=== PATIENT | female | born 1975 | race Caucasian/White ===

== ENCOUNTER 2022-04-02 08:30 | Outpatient (CLI) | payer BC, SELFPAY ==
--- NOTE | ~2022-04-02 | MR_ITS ---
EXAMINATION: MR cervical spine wo con DATE: 04/02/2022 09:36 INDICATION: No known injury. Left thumb numbness with frequent left arm pain. Cervical radiculopathy. TECHNIQUE: Magnetic resonance imaging (MRI) of the cervical spine was performed without intravenous c ontrast. Sequences included sagittal T2-weighted FSE, sagittal T2-weighted FS FSE, sagittal T1-weight ed FSE, axial MERGE, and axial T2-weighted FSE. COMPARISON: None FINDINGS: Craniocervical association and atlantoaxial joint are intact. Normal alignment. Vertebral b ruddy heights are maintained. Loss of disc height and hydration at C5-6 and C6-7. The cord signal is no rmal. The following disc levels are specifically discussed: C2-C3: The disc does not extend beyond the endplate margin. There is no uncovertebral joint osteoarth ritis. There is no facet joint osteoarthritis. There is no neural foraminal stenosis. There is no malcolm tral canal stenosis. C3-C4: The disc does not extend beyond the endplate margin. There is no uncovertebral joint osteoarth ritis. There is no facet joint osteoarthritis. There is no neural foraminal stenosis. There is no malcolm tral canal stenosis. C4-C5: The disc does not extend beyond the endplate margin. There is no uncovertebral joint osteoarth ritis. There is no facet joint osteoarthritis. There is no neural foraminal stenosis. There is no malcolm tral canal stenosis. C5-C6: Moderate diffuse bulge with a bilobed shape that narrows the bilateral foraminal entrances. Th ere is mild uncovertebral joint osteoarthritis. There is no facet joint osteoarthritis. There is mild bilateral neural foraminal stenosis. There is moderate central canal stenosis, with mild posterior d isplacement of the cord. C6-C7: Moderate diffuse bulge with a 2 mm right paracentral protrusion. There is mild right uncoverte bral joint osteoarthritis. There is mild bilateral facet joint osteoarthritis. There is mild right ne ural foraminal stenosis. There is no central canal stenosis. C7-T1: The disc does not extend beyond the endplate margin. There is no uncovertebral joint osteoarth ritis. There is moderate right and mild left facet joint osteoarthritis, with centrally directed oste ophytosis versus old synovial cyst off of the right facet that narrows the lateral recess on the righ t. There is no neural foraminal stenosis. There is no central canal stenosis. IMPRESSION: 1. Moderate degenerative disc disease at C5-6 causes mild bilateral neural foraminal entrance narrowi ng and moderate central canal stenosis. 2. Degenerative disc, uncovertebral joint and facet change at C6-7, in concert with a 2 mm right para central protrusion contribute to mild right neural foraminal narrowing at the same level. 3. Moderate right C7-T1 facet arthropathy with prominent centrally directed osteophyte or old synovia l cyst that narrows the right lateral recess at the C7 level. Reviewed, dictated and finalized at location [facility]. IMPRESSION: 1. Moderate degenerative disc disease at C5-6 causes mild bilateral neural fora kade entrance narrowing and moderate central canal stenosis. 2. Degenerative disc, uncovertebral joint and facet change at C6-7, in concert with a 2 mm right paracentral protrusion contribute to mild right neural forami nal narrowing at the same level. 3. Moderate right C7-T1 facet arthropathy with prominent centrally directed ost eophyte or old synovial cyst that narrows the right lateral recess at the C7 le rohini.
== END 2022-04-02 08:31 | disposition home or self-care (01) ==
PROVIDERS: PCP Internal Medicine; Visit Provider Nurse Practitioner
DX: M47.23 Other spondylosis with radiculopathy, cervicothoracic region (principal); M48.03 Spinal stenosis, cervicothoracic region
CPT/HCPCS: 72141

== ENCOUNTER 2024-07-30 12:27 | Outpatient (CLI) | payer BC, SELFPAY ==
--- NOTE | ~2024-07-30 | MM_ITS ---
EXAMINATION: MM screening patricia BI w blanca HISTORY: Screening TECHNIQUE: Craniocaudal and mediolateral oblique 3-D tomosynthesis images were obtained and synthetic 2-D images were generated. CAD analysis was submitted and interpreted. COMPARISON: No prior mammogram is available for comparison at this institution. BREAST PARENCHYMAL COMPOSITION: Not dense: There are scattered areas of fibroglandular density. FINDINGS: There is a fat-containing mass in the right axilla on MLO view, consistent with lipoma. The re is no evidence of suspicious mass, calcification, or architectural distortion to suggest malignanc y in either breast. There has been no suspicious interval change. IMPRESSION: 1. No mammographic evidence of malignancy. 2. Recommend routine screening mammography in one year. BI-RADS Category 1: Negative Reviewed, dictated and finalized at location B.
== END 2024-07-30 12:28 | disposition home or self-care (01) ==
LOC: MICIMG 12:28
PROVIDERS: PCP Obstetrics & Gynecology; Visit Provider Obstetrics & Gynecology
DX: Z12.31 Encounter for screening mammogram for malignant neoplasm of breast (principal)
CPT/HCPCS: 77063; 77067